=== PATIENT | male | born 1985 | race Caucasian/White ===

== ENCOUNTER → 2018-07-04 | Outpatient (CLI) | payer OTHER ==
--- NOTE | 2018-07-04 18:29 | CT ---
EXAMINATION TYPE: CT brain wo con DATE OF EXAM: 07/04/2018 COMPARISON: Other nontraumatic intracerebral hemorrhage per order. History of brain bleed one year ag o per patient with vision and memory changes for patient. HISTORY: Other non-traumatic intercerebral hemorrhage. History of brain bleed. CT DLP: 837.6 mGycm. Automated Exposure Control for Dose Reduction was Utilized. TECHNIQUE: CT scan of the head is performed without contrast. FINDINGS: There is no acute intracranial hemorrhage identified. There is high left parietal craniec geovanna with adjacent encephalomalacia and ex vacuo dilatation of superior portion of left ventricular s ystem. Midline shift to the right superiorly is noted. Nonspecific moderate areas of low attenuation in the more inferior deep and periventricular white matter are present. Visualized paranasal sinuses are clear and the globes are intact. IMPRESSION: As above. Correlation with old outside CT and/or MRI would be beneficial.
== END | disposition home or self-care (01) ==
LOC: EEVIPCON 17:00 → RADCTMAIN 17:45
PROVIDERS: ATTEND Neurological Surgery
DX: G93.89 Other specified disorders of brain (principal); Z98.890 Other specified postprocedural states
CPT/HCPCS: 70450